=== PATIENT | female | born 1945 | race Caucasian/White ===

== ENCOUNTER 2022-09-01 08:48 | Inpatient (IN) | payer OTHER ==
[~2022-09-01] VITALS: Ht 165.1 cm; Wt 82.6 kg
[2022-09-01 08:48] VITALS: BP_SYST 162
--- NOTE | 2022-09-01 08:48 | NUR ---
Placed in room 1 . Placed on property assessment monitor, blood pressure machine and pulse oximeter. To gown for exam. Side rails up. Report given to RAPHAEL CASTILLO.
--- NOTE | 2022-09-01 08:50 | NUR ---
ER DR. CRUZ AT THE BEDSIDE EXAMINING PT
--- NOTE | 2022-09-01 08:51 | NUR ---
RECEIVED PT FROM RAPHAEL IZAGUIRRE. PT BOLA HORN FROM [facility], STAFF FOUND PT THIS MORNING WITH SLURRED SPEECH AND MINOR LEFT SIDED FACIAL DROOP. PT IS OBTUNDED, CAN NOT FOLLOW COMMANDS, GARBLED SPEECH, PT THRASHING AND KICKING IN BED, ATTEMPTING TO GET OOB. RESP E/U. LUNG SOUNDS DIMINISHED BILATERALLY. N/C AT 4LPM IN PLACE O2 SAT 97%. NO COUGH OR SOB NOTED. ABDOMEN SOFT, NONTENDER, NONDISTENDED. PT INCONTINENT OF URINE AND STOOL. PT CHANGED AND PLACED IN GOWN. DISTAL PULSE NORMAL, SKIN WARM, CDI. PT HAS BLE TRACE EDEMA. IV CATH TO RAC [address] S/L[address] PT PLACED ON MONITOR. SIDERAILS UP X2.
[2022-09-01] MEDS ORDERED: iohexoL 350 mgI/mL, 100 ML INFUS..BTL IV ONE (09:02)
[2022-09-01] MEDS ORDERED: LORazepam 2 MG/ML VIAL ONE ×2 (09:05→10:28)
--- NOTE | 2022-09-01 09:07 | NUR ---
TELE NEURO REQUESTED PER DR. CRUZ
--- NOTE | 2022-09-01 09:12 | NUR ---
LAB AT THE BEDSIDE FOR BLOOD DRAW
[2022-09-01] MEDS ORDERED: LORazepam 2 MG/ML VIAL IVP ONE ×2 (09:15→11:00)
--- NOTE | 2022-09-01 09:16 | NUR ---
ANNA LIM AT BEDSIDE WITH TELENEURO CONSULT
--- NOTE | 2022-09-01 09:23 | NUR ---
SW DAUGHTER SAIGE AREVALO FOR STATUS UPDATE . STATES PT HAS BEEN AT A REHAB AND IS NORMALLY AOX4, SPEAKS LEBANESE FLUENTLY AND HAS NOT KNOWN HX OF CVA.
[2022-09-01 09:27] LABS: BASOPHILS % (AUTO) 0.7 % (0.0-2.0); EOSINOPHILS # (AUTO) 0.1 K/uL (0.0-0.4); EOSINOPHILS % (AUTO) 1.4 % (0.0-4.0); HEMOGLOBIN 11.1 g/dL (12.0-16.0); LYMPHOCYTES # (AUTO) 1.4 K/uL (1.0-5.5); LYMPHOCYTES % (AUTO) 27.2 % (20.5-51.5); MEAN CORPUSCULAR HEMOGLOBIN 28 pg (27-31); MEAN CORPUSCULAR HGB CONC 33 % (32-36); MEAN CORPUSCULAR VOLUME 86 fL (79.0-98.0); MONOCYTES # (AUTO) 0.4 K/uL (0.0-1.0); NEUTROPHILS # (AUTO) 3.2 K/uL (1.8-7.7); NEUTROPHILS % (AUTO) 62.7 % (40.0-70.0); PLATELET COUNT (AUTO) 185 K/uL (130-430); RED BLOOD CELL COUNT(AUTO) 3.94 MIL/uL (4.2-6.2); RED CELL DISTRIBUTION WIDTH 16.3 % (9.0-15.0); WHITE BLOOD COUNT (AUTO) 5.1 K/uL (4.8-10.8)
[2022-09-01 09:38] LABS: ANION GAP 11 (5-15); CALCIUM 9.7 mg/dL (8.4-11.0); CHLORIDE 101 mmol/L (98-107); CREATININE 1.15 mg/dL (0.55-1.30); GLUCOSE 128 mg/dL (70-99); UREA NITROGEN, BLOOD 20 mg/dL (8-21)
[2022-09-01 09:46] LABS: ALANINE AMINOTRANSFERASE 17 U/L (12-78); ALBUMIN 2.5 g/dL (3.4-4.8); ASPARTATE AMINOTRANSFERASE 53 U/L (10-37); PROTHROMBIN TIME 10.3 SECS (9.5-12.5); TOTAL BILIRUBIN 0.7 mg/dL (0.0-1.0)
[2022-09-01] MEDS ORDERED: INSULIN GLARGINE 100 UNITS/ML, 10 ML VIAL ONE (09:59)
[2022-09-01 10:42] LABS: BILIRUBIN,URINE NEGATIVE (NEGATIVE); BLOOD, URINE NEGATIVE (NEGATIVE); CLARITY/URINE CLEAR (CLEAR); COLOR,URINE YELLOW (YELLOW); GLUCOSE,URINE NEGATIVE (NEGATIVE); KETONES,URINE NEGATIVE (NEGATIVE); LEUKOCYTE ESTERASE ,URINE NEGATIVE (NEGATIVE); NITRITE, URINE NEGATIVE (NEGATIVE); PROTEIN URINE 1+ (NEGATIVE); UROBILINOGEN,URINE 0.2 (0.2-1.0)
--- NOTE | 2022-09-01 10:53 | NUR ---
DR. CRUZ AT BEDSIDE TO DISCUSS POC WITH PT AND PT'S DAUGHTER.
[2022-09-01] MEDS ORDERED: LIP20 PO (11:20)
[2022-09-01] MEDS ORDERED: ACET-73 PO (11:20)
[2022-09-01] MEDS ORDERED: HYDR-4037 PO (11:20)
[2022-09-01] MEDS ORDERED: VALS160T2 PO (11:20)
[2022-09-01] MEDS ORDERED: HYDR-3917 PO (11:20)
[2022-09-01] MEDS ORDERED: DICLOFENAC GEL TP (11:20)
[2022-09-01] MEDS ORDERED: LOVI40 SQ (11:20)
[2022-09-01] MEDS ORDERED: LEVO125T8 PO (11:20)
[2022-09-01] MEDS ORDERED: MOM PO (11:20)
[2022-09-01] MEDS ORDERED: DOCU-156 PO (11:20)
[2022-09-01] MEDS ORDERED: FAMO20TA8 PO (11:20)
[2022-09-01] MEDS ORDERED: BISA10SU61 RC (11:20)
[2022-09-01] MEDS ORDERED: SENN8.6T19 PO (11:20)
[2022-09-01] MEDS ORDERED: ACET325T PO (11:20)
--- NOTE | 2022-09-01 11:20 | NUR ---
Medication reconciliation completed with information provided by [facility]. Any prior medication reconciliation on file was reviewed and corrected.
--- NOTE | 2022-09-01 11:29 | NUR ---
PT TAKEN FOR CTA HEAD/NECK AT THIS TIME, R/T AT BEDSIDE PT TRANSFERRED VIA ACLS. RAPHAEL PARMAR AT BEDSIDE.
--- NOTE | 2022-09-01 11:29 | NUR ---
NAM RN PUSHED ETOMIDATE (AMIDATE) 30 MG IVP PUSH ORDERED BY DR. STEVIE CRUZ. PRIMARY NURSE INFORMED OF ORDER. CHARGE NURSE MADE AWARE OF ORDER.
[2022-09-01] MEDS ORDERED: ETOMIDATE 20 MG/ 10 ML VIAL (AMIDATE) IVP ONE (11:30)
--- NOTE | 2022-09-01 11:30 | NUR ---
BILATERAL SOFT WRIST RESTRAINTS APPLIED AT THIS TIME. PT THRASING IN BED KICKING FEET AND ATTEMPT TO GO OVER SIDERAILS, UNABLE TO REDIRECT. DR. CRUZ AT BEDSIDE TO ASSESS PT.
--- NOTE | 2022-09-01 11:30 | NUR ---
PT TRANSPORTED VIA GURNEY TO CT ACCOMPANIED BY ER DR MCKEON AND CT STAFF AND THIS RN. ER DR. CRUZ ADMINISTERED ETOMIDATE 20MG IVP, PT TOLERATED WELL AND CT'S OBTAINED.
--- NOTE | 2022-09-01 11:42 | NUR ---
PT BACK FROM CT SCAN AND PLACED ON MONITOR. VSS.
[2022-09-01] MEDS ORDERED: ACETAMINOPHEN 325 MG TABLET PO PRN ×2 (13:00→14:00)
[2022-09-01] MEDS ORDERED: MUPIROCIN 2% TOPICAL OINTMENT 22 GM NS PRN (13:00)
[2022-09-01] MEDS ORDERED: MAGNESIUM SULFATE 50 ML IV PRN (13:00)
[2022-09-01] MEDS ORDERED: DOCUSATE SODIUM 100 MG CAPSULE PO PRN (13:00)
[2022-09-01] MEDS ORDERED: ONDANSETRON HCL 4 MG/2 ML VIAL IVP PRN (13:00)
--- NOTE | 2022-09-01 13:13 | NUR ---
PT THRASING ARMS AND KICKING FEET IN BED, ATIVAN 1MG IVP GIVEN. PT ON MONITOR. DAUGHTER AT BEDSIDE. Addendum: 09/01/22 at 1501 by [email or web address] CLARIFICATION: ATIVAN 2MG IM GIVEN TO RIGHT DELTOID. SITE WNL. COVERED WITH CDI DRESSING.
[2022-09-01] MEDS ORDERED: LORazepam 2 MG/ML VIAL IM ONE (13:15)
--- NOTE | 2022-09-01 13:51 | NUR ---
Admit bed requested Patient will be admitted to care of . Admitted to TELEMETRY unit. Diagnosis ACUTE METABOLIC ENCEPHALOPATHY Inpatient (Yes or No) YES Observation (Yes or No) NO Orientation concerns or request close to nursing station (Yes or No)YES-(ON RESTRAINTS) Covid Status NEGATIVE On vent or bipap NO Isolation requirements NONE Needs a sitter NO From Home (Yes or if No enter name of facility) [facility] Requires Dialysis (Yes or No) NO Med Rec Completed (Yes of No) YES
[2022-09-01] MEDS: NACL 0.9% 1,000 ML IV SCH (14:59)
--- NOTE | 2022-09-01 14:59 | NUR ---
NS AT 100ML/HOUR INITATED.
--- NOTE | 2022-09-01 15:07 | NUR ---
ADMISSION CONSULT HAS BEEN PAGED, ORDERED BY DR. WRIGHT
--- NOTE | 2022-09-01 15:40 | NUR ---
OPENING NOTE; RECEIVED REPORT FROM ANNA ER NURSE. PT CAME WITH BILATERAL SOFT RESTRAINTS, BREATHING 4L O2 VIA NC. NPO STATUS AND PENDING SWALLOW EVAL. FAMILY MEMBERS AT BEDSIDE. ANSWERED ALL QUESTIONS. IV S/L TO LEFT AC NOTED WITH NO IV INFILTRATION OR INFECTION NOTED. BED IS LOCKED AND AT LOW POSITION. BED ALARM ON. PT ROOM IS 121C, CLOSE TO THE NURSE'S STATION. PROVIDED ZOHRA CARE AND CHANGED WED PADS. WILL CONT TO MONITOR THE INDICATION OF BILATERAL RESTRAINTS AND ANY CHANGES.
--- NOTE | 2022-09-01 15:51 | NUR ---
CONSULTATION PAGED/CALLED Reason for Consultation: [] AMS Person Who was Notified: [] TEXTED CONSULT TO DR Rosalva SOSA Consulting Physician: [] DR Rosalva SOSA Travel Service Consultant Specialty: [] NEURO Ordering Physician: [] DR WRIGHT
--- NOTE | 2022-09-01 16:02 | NUR ---
Patient will be admitted to care of OCTOBER, RN. Admitted to TELEMETRY unit. Will go to room 121C. Belongings list completed. Complete and up to date summary report printed. SBAR report to be given at bedside with opportunity for questions.
[2022-09-01 16:13] VITALS: BP_SYST 160
[2022-09-01] MEDS: LORazepam 2 MG/ML VIAL IVP PRN (17:16)
--- NOTE | 2022-09-01 17:16 | NUR ---
NOTES; FAMILY MEMBER CAME TO THIS NURSE THAT PT IS RESTLESS AND AGITATED. PULLED PT UP AND CHECKED THE PAD. PROVIDED MEDICATION ORDERED. WILL CONT TO MONITOR THE EFFECTIVENESS OF THE MEDIATION
--- NOTE | 2022-09-01 17:20 | NUR ---
HAVE TO CALL DTR(SAIGE OR [facility]IL[facility]) FOR UPDATES. THEY ARE OKAY WITH ANYTIME.
--- NOTE | 2022-09-01 17:37 | NUR ---
ST EVALUATION COMPLETED. ST TX NOT INDICATED AT THIS TIME. PT AGITATED AND UNABLE TO FOLLOW SIMPLE COMMANDS. PT UNABLE TO DEMONSTRATE A SAFE EFFECTIVE SWALLOW. RECOMMEND NPO WITH ALTERNATIVE MEANS OF NUTRITION.
--- NOTE | 2022-09-01 18:01 | NUR ---
NOTES; PT SLEEPING WITH EYES CLOSED, BREATHING 4L O2 VIA NC. IVF RUNNING ORDERED. NO IV INFILTRATION OR INFECTION NOTED. NO S/S ACUTE DISTRESS OR PAIN. WILL CONT TO MONITOR ANY CHANGES
--- NOTE | 2022-09-01 18:54 | NUR ---
CLOSING NOTE; PROVIDED GOOD ZOHRA CARE, CHANGED WED PAD. IVF RUNNING ORDERED IV SITES REMAIN INTACT AND PATENT. NO S/S ACUTE DISTRESS NOTED. BED IS LOCKED AND AT LOWEST POSITION. BED ALARM ON. CALL LIGHT WITHIN REACH. SAFETY AND FALL PRECAUTION IN PLACE. WILL ENDORSE CARE TO ETL TESTER NURSE.
--- NOTE | 2022-09-01 19:24 | NUR ---
>>>PT NOTES<<< UNABLE TO EVALUATE PATIENT TODAY. PATIENT IS CURRENTLY SEDATED. WILL FOLLOW UP TOMORROW, Monday09/02/22.
[2022-09-01 20:00] VITALS: BP_SYST 150
[2022-09-01] MEDS: ATORVASTATIN 20 MG TABLET PO SCH (21:00)
[2022-09-02] VITALS (7 sets, daily range): BP systolic 129–159
[2022-09-02] MEDS: NACL 0.9% 1,000 ML IV SCH (00:30)
[2022-09-02] MEDS ORDERED: ALBUTEROL SULFATE 0.083% 2.5 MG/3 ML VIAL.NEB INH PRN (04:45)
[2022-09-02 06:36] LABS: ANION GAP 10 (5-15); CALCIUM 9.1 mg/dL (8.4-11.0); CHLORIDE 102 mmol/L (98-107); CREATININE 0.78 mg/dL (0.55-1.30); GLUCOSE 117 mg/dL (70-99); UREA NITROGEN, BLOOD 16 mg/dL (8-21)
[2022-09-02] MEDS: LEVOTHYROXINE SODIUM 0.125 MG TABLET PO SCH (07:00)
[2022-09-02 07:06] LABS: BASOPHILS % (AUTO) 0.4 % (0.0-2.0); EOSINOPHILS % (AUTO) 0.4 % (0.0-4.0); HEMATOCRIT 33.2 % (36-48); HEMOGLOBIN 10.9 g/dL (12.0-16.0); LYMPHOCYTES # (AUTO) 1.4 K/uL (1.0-5.5); LYMPHOCYTES % (AUTO) 22.5 % (20.5-51.5); MEAN CORPUSCULAR HEMOGLOBIN 29 pg (27-31); MEAN CORPUSCULAR HGB CONC 33 % (32-36); MEAN CORPUSCULAR VOLUME 87 fL (79.0-98.0); MONOCYTES # (AUTO) 0.9 K/uL (0.0-1.0); MONOCYTES % (AUTO) 13.6 % (1.7-9.3); NEUTROPHILS # (AUTO) 3.9 K/uL (1.8-7.7); NEUTROPHILS % (AUTO) 63.1 % (40.0-70.0); PLATELET COUNT (AUTO) 154 K/uL (130-430); RED BLOOD CELL COUNT(AUTO) 3.84 MIL/uL (4.2-6.2); RED CELL DISTRIBUTION WIDTH 16.4 % (9.0-15.0); WHITE BLOOD COUNT (AUTO) 6.2 K/uL (4.8-10.8)
--- NOTE | 2022-09-02 08:00 | NUR ---
Opening notes Patient is AOx1. Confused. NPO. Patient is on 4 L O2 via Oxymizer. Breathing is slightly labored, no nasal flaring noted. Patient also breathing thru mouth. Patient repositioned, HOB elevated. Vital signs obtained as documented. SPo2 at 96%. IV patent. Bed is locked, alarm, on, and at lowest position. Call light within reach. Addendum: 09/02/22 at 1400 by Willow Castellano LVN Opening notes Patient is AOx1. Confused. NPO. Patient is on 4 L O2 via Oxymizer. Breathing is slightly labored, no nasal flaring noted. Patient also breathing thru mouth. Patient repositioned, HOB elevated. Vital signs obtained as documented. SPo2 at 96%. IV patent. Patient has bilateral wrist restraints in place. No redness and/ or edema noted. Skin intact. Good blood circulation, cap refill less than 3 seconds. Bed is locked, alarm, on, and at lowest position. Call light within reach.
[2022-09-02] MEDS: ASPIRIN 81 MG TAB.CHEW PO SCH (09:00)
--- NOTE | 2022-09-02 09:00 | NUR ---
critical Lab informed nurse of critical d- dimer [id number]. nursed paged and spoke to Dr. Clements. aware of critical. Per , will put in new orders.
[2022-09-02] MEDS ORDERED: ENOXAPARIN SODIUM 80 MG/0.8 ML SYRINGE SUBCUT SCH (09:15)
[2022-09-02] MEDS ORDERED: DEXTROSE 50% JECT 50 ML DISP.SYRIN IVP PRN (09:30)
[2022-09-02] MEDS ORDERED: INSULIN LISPRO SLIDING SCALE 100 UNITS/ML, 3 ML VIAL (humaLOG) SUBCUT PRN (09:30)
--- NOTE | 2022-09-02 12:00 | NUR ---
Notes Patient has been cleaned and repositioned. Breathing is even and nonlabored, on 4 L O2 via Oxymizer. Patient remains NPO. restraints in place. No redness and or edema noted. Cap refill less than 3 seconds. All safety precautions in place and call light within reach.
[2022-09-02] MEDS ORDERED: iohexoL 350 mgI/mL, 100 ML INFUS..BTL IV ONE ×2 (13:05→17:20)
--- NOTE | 2022-09-02 13:30 | NUR ---
notes patient left unit for CT and MRI.
[2022-09-02] MEDS: LORazepam 2 MG/ML VIAL IVP PRN (13:41)
[2022-09-02] MEDS: PIPERACILLIN/TAZO 3.375/DEX-IS 50 ML IV SCH ×3 (15:10→23:45)
[2022-09-02] MEDS: D5NS 500 ML IV SCH ×2 (15:14→20:46)
--- NOTE | 2022-09-02 16:14 | NUR ---
notes Patient is resting, eyes closed, appears to be asleep. Breathing is even and nonlabored, on 4 L O2 via Oxymizer. No ss of distress noted. IVF running. IV patent. No facial grimace noted. Safety precautions in place and call light within reach.
--- NOTE | 2022-09-02 16:28 | NUR ---
Dietitian Recommendations * If/when medically appropriate, consider alternative nutrition support within 7 days - EN versus TPN/PPN to support GI integrity - Consider NGT placement LP, MS, RD Please refer to Nutrition Assessment for details. Addendum: 09/02/22 at [address] Amended: Links added.
--- NOTE | 2022-09-02 17:45 | NUR ---
second time paging Dr. Sawyer for orders. waiting for callback.
--- NOTE | 2022-09-02 18:57 | NUR ---
Closing Notes Patient is resting, eyes closed, appears to be sleeping. Breathing is even and nonlabored, on 4 L O2 via NC. No SOB noted. No facial grimace noted. IV patent. IVF running. Bilateral wrist restraints in place. No redness and or edema noted. skin intact. Patient is stable at this time. All needs met. Bed is locked, alarm on, and at lowest position. Call light within reach.
--- NOTE | 2022-09-02 19:50 | NUR ---
RECEIVED PT IN BED, AOX1, IN NO RESPIRATORY DISTRESS, PT CONFUSED, DENIED ANY SOB, CP OR PAIN ATT, BIATRIAL SOFT RESTRAIN NOTED, D5NS AT 75CC ONGOING TO LFA, SALINE LOCK TO RAC, NOTED BRUISES ON THE RA, ON CONNECTED TO OXYGEN 4L, BEDREST, CHECKED PT V/S AND O2SAT NOTED TO BE 89%, PT CONNECTED TO 4L OF OXYGEN VIA N/C, WILL CONTINUE WITH POC
[2022-09-02] MEDS: HEPARIN SODIUM,PORCINE 5,000 UNITS/ML VIAL SUBCUT SCH (20:47)
[2022-09-02] MEDS: ATORVASTATIN 20 MG TABLET PO SCH (20:47)
[2022-09-03] MEDS: D5NS 500 ML IV SCH ×4 (00:08→23:36)
[2022-09-03 00:34] VITALS: BP_SYST 136
--- NOTE | 2022-09-03 01:00 | NUR ---
PT IS INCONTINENT, UNABLE TO START 24HRS URINE COLLECTION, CALLED DR. WRIGHT, ORDERED TO INSERT INDWELLING F/C FOR COLLECTION OF URINE, ORDER NOTED, WILL BE CARRIED OUT
[2022-09-03] MEDS: PIPERACILLIN/TAZO 3.375/DEX-IS 50 ML IV SCH ×4 (05:11→23:35)
[2022-09-03] MEDS: LEVOTHYROXINE SODIUM 0.125 MG TABLET PO SCH (06:19)
--- NOTE | 2022-09-03 06:45 | NUR ---
PT IN BED, AOX1, IN NO RESPIRATORY DISTRESS, PT CONFUSED, ON BIATRIAL SOFT RESTRAIN, DENIED ANY SOB, CP OR PAIN ATT, D5NS AT 75CC ONGOING TO LFA, SALINE LOCK TO RAC, WITH BRUISES ON THE RAC, PT ON OXYGEN 4L VIA N/C, BEDREST, VOIDING W/O DIFFICULTY, F/C TO GRAVITY, DRAINING YELLOW CLEAR URINE, 24HRS URINE COLLECTION STARTED AT 6:30AM, VSS, NO NEW BRUISES OR INJURY SUSTAINED ON WRIST OR ANY OTHER PART OF BODY THIS SHIFT, SAFETY PREC MAINTAINED, LOW BED, WILL ENDORSE TO AM SHIFT
[2022-09-03 06:54] LABS: ANION GAP 10 (5-15); CHLORIDE 103 mmol/L (98-107); CREATININE 0.79 mg/dL (0.55-1.30); GLUCOSE 148 mg/dL (70-99); UREA NITROGEN, BLOOD 15 mg/dL (8-21)
[2022-09-03 07:56] LABS: BASOPHILS % (AUTO) 0.4 % (0.0-2.0); EOSINOPHILS % (AUTO) 0.4 % (0.0-4.0); HEMATOCRIT 32.3 % (36-48); HEMOGLOBIN 10.6 g/dL (12.0-16.0); LYMPHOCYTES % (AUTO) 18.1 % (20.5-51.5); MEAN CORPUSCULAR HEMOGLOBIN 29 pg (27-31); MEAN CORPUSCULAR HGB CONC 33 % (32-36); MEAN CORPUSCULAR VOLUME 87 fL (79.0-98.0); MONOCYTES # (AUTO) 0.6 K/uL (0.0-1.0); MONOCYTES % (AUTO) 11.1 % (1.7-9.3); PLATELET COUNT (AUTO) 158 K/uL (130-430); RED BLOOD CELL COUNT(AUTO) 3.73 MIL/uL (4.2-6.2); RED CELL DISTRIBUTION WIDTH 16.3 % (9.0-15.0); WHITE BLOOD COUNT (AUTO) 5.7 K/uL (4.8-10.8)
[2022-09-03 08:00] VITALS: BP_SYST 133
--- NOTE | 2022-09-03 08:00 | NUR ---
Opening Notes Patient is awake, alert, and confused. AOx3. No ss of distress noted. Breathing is even and nonlabored, on 4 L O2 via Oxymizer. No SOB noted. Patient denies pain. Removed Bilateral wrist restraints at this time. No edema or redness noted. Patient more cooperative. Vital signs obtained, as documented. Mai catheter in place, draining by gravity. 24 hr urine collection has started and is ongoing. Bed is locked, alarm on, and at lowest position. Call light within reach.
[2022-09-03] MEDS: ASPIRIN 81 MG TAB.CHEW PO SCH (10:03)
[2022-09-03] MEDS: POTASSIUM CHLORIDE 20 MEQ TAB.PRT.SR PO PRN (10:04)
[2022-09-03] MEDS: HEPARIN SODIUM,PORCINE 5,000 UNITS/ML VIAL SUBCUT SCH ×2 (10:06→22:08)
--- NOTE | 2022-09-03 10:48 | NUR ---
notes Patient is more awake and alert. bedside swallow test performed. Patient tolerated well. no coughing.no choking. no ss of aspiration. Paged and spoke to Dr. Celments. New orders received.
--- NOTE | 2022-09-03 12:00 | NUR ---
notes Patient is awake and is in high fowlers, lunch on bedside table. no ss of distress noted. breathing is even and nonlabored, on Oxymizer 4 L O2. No SOB noted. Patient continues to be cooperative. All safety precautions in place and call light within reach.
[2022-09-03 13:09] VITALS: BP_SYST 129
--- NOTE | 2022-09-03 16:00 | NUR ---
notes Patient is resting, eyes closed. No distress noted. No SOb noted. No facial grimace noted. All safety precautions in place and call light within reach.
[2022-09-03 16:31] VITALS: BP_SYST 151
--- NOTE | 2022-09-03 17:18 | NUR ---
Notes Patient working with physical therapy.
--- NOTE | 2022-09-03 18:35 | NUR ---
CLOSING NOTES PATIENT IS RESTING, AWAKE. NO SS OF DISTRESS NOTED. BREATHING IS EVEN AND NONLABORED, ON 4 L O2 VIA OXYMIZER. NO SOB NOTED. PATIENT DENIES PAIN. IV PATENT. IVF RUNNING. MONTEJO CATHETER DRAINING BY GRAVITY. 24 HOUR URINE COLLECTION STILL ONGOING. BED IS LOCKED, ALARM ON, AND AT LOWEST POSITION. CALL LIGHT WITHIN REACH. PATIENT IS STABLE. ALL NEEDS MET. SPOKE TO JO ANN RANDALL. REQUESTS FOR MD TO CALL HIM TO DISCUSS RESULTS OF CT/ MRI SCANS. CONTACT INFO IS . PAGED DR. SRIVASTAVA. WAITING FOR CALL BACK. Addendum: 09/03/22 at 1851 by Willow Castellano LVN CLOSING NOTES PATIENT IS RESTING, AWAKE. NO SS OF DISTRESS NOTED. BREATHING IS EVEN AND NONLABORED, ON 4 L O2 VIA OXYMIZER. NO SOB NOTED. PATIENT DENIES PAIN. IV PATENT. IVF RUNNING. MONTEJO CATHETER DRAINING BY GRAVITY. 24 HOUR URINE COLLECTION STILL ONGOING. BED IS LOCKED, ALARM ON, AND AT LOWEST POSITION. CALL LIGHT WITHIN REACH. PATIENT IS STABLE. ALL NEEDS MET. SPOKE TO JO ANN RANDALL. REQUESTS FOR MD TO CALL HIM TO DISCUSS RESULTS OF CT/ MRI SCANS. CONTACT INFO IS . PAGED DR. WRIGHT. WAITING FOR CALL BACK. -- SPOKE TO DR. WRIGHT. CONFIRMED WITH MD FUAD DUPREE. MD TO CALL JO ANN.
[2022-09-03 20:00] VITALS: BP_SYST 149
--- NOTE | 2022-09-03 20:00 | NUR ---
OPENING NOTES RECEIVED PATIENT IN BED. PATIENT AXO 3. NO S/S OF DISCOMFORT OR PAIN. BREATHING WAS UNLABORED. ALL NEEDS WERE MET AT THIS TIME. SAFETY CHECKS WERE DONE AND CALL LIGHT WITH IN REACH .
[2022-09-03] MEDS: ATORVASTATIN 20 MG TABLET PO SCH (22:02)
--- NOTE | 2022-09-04 00:07 | NUR ---
PAGED DR. BOLANOS REGARDING PATIENTS HEART RHYTHM TRIGEMNY PVC. STATED TO KEEP MONITORING PATIENT AND WILL RE-EVALUATE IN THE MORNING.
[2022-09-04 01:27] VITALS: BP_SYST 149
[2022-09-04] MEDS: D5NS 500 ML IV SCH (05:04)
[2022-09-04] MEDS: PIPERACILLIN/TAZO 3.375/DEX-IS 50 ML IV SCH (05:05)
--- NOTE | 2022-09-04 06:30 | NUR ---
24 hour urine collection stopped at 0630. Container delivered to lab.
[2022-09-04] MEDS: LEVOTHYROXINE SODIUM 0.125 MG TABLET PO SCH (07:04)
--- NOTE | 2022-09-04 07:26 | NUR ---
CLOSING NOTES PATIENT IS LYING IN BED. 24 HOURS URINE HAS BEEN COLLECTED AND SENT TO LABS. BLOOD SUGAR CHECK IS DONE. REPOSITIONED PATIENT. NO S/S OF PAIN OR DISTRESS. BREATHING IS UNLABORED. AXO3. HANDED PATIENT TO MUFFLE OPERATOR. ALL NEEDS WERE MET AT THIS TIME. SAFETY CHECKS ARE DONE AND CALL LIGHT WITH IN REACH
[2022-09-04 07:38] LABS: BASOPHILS % (AUTO) 0.5 % (0.0-2.0); EOSINOPHILS % (AUTO) 0.5 % (0.0-4.0); HEMATOCRIT 29.3 % (36-48); HEMOGLOBIN 9.8 g/dL (12.0-16.0); LYMPHOCYTES # (AUTO) 1.5 K/uL (1.0-5.5); LYMPHOCYTES % (AUTO) 26.5 % (20.5-51.5); MEAN CORPUSCULAR HEMOGLOBIN 29 pg (27-31); MEAN CORPUSCULAR HGB CONC 33 % (32-36); MEAN CORPUSCULAR VOLUME 86 fL (79.0-98.0); MONOCYTES # (AUTO) 0.5 K/uL (0.0-1.0); MONOCYTES % (AUTO) 9.5 % (1.7-9.3); NEUTROPHILS # (AUTO) 3.5 K/uL (1.8-7.7); PLATELET COUNT (AUTO) 176 K/uL (130-430); RED BLOOD CELL COUNT(AUTO) 3.42 MIL/uL (4.2-6.2); RED CELL DISTRIBUTION WIDTH 16.4 % (9.0-15.0); WHITE BLOOD COUNT (AUTO) 5.6 K/uL (4.8-10.8)
--- NOTE | 2022-09-04 07:45 | NUR ---
Opening Notes Patient is Aox3 forgetful. No ss of distress noted. Patient's breathing is even and nonlabored, on room air. Denies SOB. Denies pain. Vital signs obtained, as documented. Iv patent. IVF running. Mai catheter draining by gravity. Bed is locked, alarm on, and at lowest position. Call light within reach.
[2022-09-04 08:00] VITALS: BP_SYST 143
[2022-09-04 08:15] LABS: ALANINE AMINOTRANSFERASE 14 U/L (12-78); ANION GAP 10 (5-15); ASPARTATE AMINOTRANSFERASE 32 U/L (10-37); CALCIUM 8.7 mg/dL (8.4-11.0); CHLORIDE 104 mmol/L (98-107); CREATININE 0.87 mg/dL (0.55-1.30); GLUCOSE 121 mg/dL (70-99); TOTAL BILIRUBIN 1.2 mg/dL (0.0-1.0); UREA NITROGEN, BLOOD 16 mg/dL (8-21)
[2022-09-04] MEDS: ASPIRIN 81 MG TAB.CHEW PO SCH (08:37)
[2022-09-04] MEDS: HEPARIN SODIUM,PORCINE 5,000 UNITS/ML VIAL SUBCUT SCH ×2 (08:42→21:14)
--- NOTE | 2022-09-04 08:46 | NUR ---
notes am medications administered. patient denies pain. no sob noted. breathing nonlabored and even on room air. all safety precautions in place and call light within reach.
--- NOTE | 2022-09-04 10:30 | NUR ---
D/C MONTEJO DISCONTINUED MONTEJO CATHETER, PER MD. PATIENT TOLERATED WELL.
[2022-09-04 11:47] VITALS: BP_SYST 142
--- NOTE | 2022-09-04 12:25 | NUR ---
notes Patient is r Addendum: 09/04/22 at 1231 by Willow Castellano LVN notes Patient is eating lunch, sitting in chair by bedside. Blood glucose was 151 mg/ dl. Patient refused insulin coverage. daughter at bedside. All safety precautions in place and call light within reach.
[2022-09-04 16:53] VITALS: BP_SYST 137
--- NOTE | 2022-09-04 17:30 | NUR ---
NOTES PATIENT GOT UP AND SAT IN CHAIR READY FOR DINNER. NO SS OF DISTRESS NOTED. DENIES SOB. DENIES PAIN. BEDSIDE TABLE IN FRONT OF HER. CALL LIGHT WITHIN REACH.
--- NOTE | 2022-09-04 18:30 | NUR ---
CLOSING NOTES PATIENT IS BACK IN BED, RESTING COMFORTABLY. BREATHING IS EVEN AND NONLABORED, ON ROOM AIR. NO SS OF RESPIRATORY DISTRESS NOTED. DENIES PAIN. IV PATENT. IVF RUNNING. PATIENT IS STABLE. ALL NEEDS MET. BED IS LOCKED, ALARM ON, AND AT LOWEST POSITION. CALL LIGHT WITHIN REACH.
[2022-09-04 19:00] VITALS: BP_SYST 146
--- NOTE | 2022-09-04 19:15 | NUR ---
change of shift.pt.presents quiescent affect;calm,resting.pt.present iv access intact;patent location lt.forearm.iv fluids infusing.pt.utilizing the bsc w/in access of the pt.general status stable.respiratory status stable;unlabored@room air.02 sat%=98%.ramesh light/telephone w/in access of the pt.
[2022-09-04 20:00] VITALS: BP_SYST 146
--- NOTE | 2022-09-04 20:00 | NUR ---
pt.assessed.v/s assessed values note wnl.o2-sat%=98%.no c/o pain.nausea.iv access intact;patent.pt.assessed for cleanliness. pt.repositioned.pt.apprised snacks/beverages are available w/in the shift.no requests posited@this hour.call light/telephone placed w/in access of the pt.
--- NOTE | 2022-09-04 20:30 | NUR ---
blood glucose assessed value:128md/dl.
--- NOTE | 2022-09-04 21:00 | NUR ---
2100p medications administered;lipitor.pt.capable to ingest the po medication w/out difficulty.no c/o pain,nausea. call light/telephone w/in access of the pt.
[2022-09-04] MEDS: ATORVASTATIN 20 MG TABLET PO SCH (21:05)
--- NOTE | 2022-09-04 22:00 | NUR ---
pt.assessed.pt.quiescent.iv access intact.per flacc pain mgx pt.absent facial grimaces/body posturing. pt.assessed for cleanliness.pt.repositioned.o2-sat%=98%.call light/telephone placed w/in access of the pt.
[2022-09-05] VITALS: BP_SYST 136
--- NOTE | 2022-09-05 | NUR ---
pt.assessed.v/s assessed values wnl.o2-sat%=98%.no c/o pain,nausea.no requests posited@this hour.pt.assisted to the bsc.returned to bed/repositioned.call light/telephone placed w/in access of the pt.
--- NOTE | 2022-09-05 02:00 | NUR ---
pt.assessed.pt.quiescent.per flacc pain mgx pt.absent facial grimaces/body posturing.pt.assessed for cleanliness pt.repositioned.call light/telephone placed w/in access of the pt.
--- NOTE | 2022-09-05 04:00 | NUR ---
pt.assessed.pt.quiescent.per flacc pain mgx pt.absent facial grimaces/body posturing.pt.assessed for cleanliness. pt.repositioned.call light/telephone placed w/in access of the pt.
[2022-09-05 04:56] LABS: BASOPHILS % (AUTO) 0.5 % (0.0-2.0); EOSINOPHILS % (AUTO) 0.8 % (0.0-4.0); HEMOGLOBIN 9.7 g/dL (12.0-16.0); LYMPHOCYTES # (AUTO) 1.5 K/uL (1.0-5.5); LYMPHOCYTES % (AUTO) 30.8 % (20.5-51.5); MEAN CORPUSCULAR HEMOGLOBIN 29 pg (27-31); MEAN CORPUSCULAR HGB CONC 33 % (32-36); MEAN CORPUSCULAR VOLUME 86 fL (79.0-98.0); MONOCYTES # (AUTO) 0.5 K/uL (0.0-1.0); MONOCYTES % (AUTO) 9.3 % (1.7-9.3); NEUTROPHILS # (AUTO) 2.9 K/uL (1.8-7.7); NEUTROPHILS % (AUTO) 58.6 % (40.0-70.0); PLATELET COUNT (AUTO) 186 K/uL (130-430); RED BLOOD CELL COUNT(AUTO) 3.38 MIL/uL (4.2-6.2); RED CELL DISTRIBUTION WIDTH 16.6 % (9.0-15.0)
[2022-09-05 05:26] LABS: ANION GAP 11 (5-15); CALCIUM 8.8 mg/dL (8.4-11.0); CHLORIDE 105 mmol/L (98-107); CREATININE 0.77 mg/dL (0.55-1.30); GLUCOSE 93 mg/dL (70-99); UREA NITROGEN, BLOOD 17 mg/dL (8-21)
[2022-09-05] MEDS: LEVOTHYROXINE SODIUM 0.125 MG TABLET PO SCH (05:59)
--- NOTE | 2022-09-05 06:15 | NUR ---
pt.assessed.blood glucose assessed value:103mg/dl.no c/o pain,nausea.pt.assissted to the bsc returned to bed repositioned.no additional requests posited@this hour.iv access re-established:#24g lt.hand.call light/telephone placed w/in access of the pt.
[2022-09-05] MEDS: ASPIRIN 81 MG TAB.CHEW PO SCH (09:11)
[2022-09-05] MEDS: HEPARIN SODIUM,PORCINE 5,000 UNITS/ML VIAL SUBCUT SCH ×2 (09:12→21:21)
--- NOTE | 2022-09-05 10:00 | NUR ---
update provided to son and daughter at bedside, advised to wait for md to do rounds for further concerns or questions
[2022-09-05] MEDS ORDERED: LACTULOSE 20 GM/30 ML UDC PO ONE (10:45)
--- NOTE | 2022-09-05 11:08 | NUR ---
BLOOD GLUCOSE 81 MG/DL. NO COVERAGE NOTED.
[2022-09-05] MEDS: POTASSIUM CHLORIDE 20 MEQ TAB.PRT.SR PO PRN (11:50)
[2022-09-05 11:55] VITALS: BP_SYST 159
--- NOTE | 2022-09-05 12:38 | NUR ---
Nutrition F/U RD reviewed pts current EMR including diet hx, physician notes, nursing notes, pertinent labs/meds/procedures, care trends and care activity. Subjective Information RD rounded to pt room and s/w pt. She attests to very poor appetite and cant stand the mushy food. Pt denies any chewing/swallowing issues, RD thinks she does not need mechanical soft diet. RD suggested Glucerna BID and pt agreeable. Pt gave some snack ideas; RD entered in computrition. Pt denies any GI symptoms. Pt reports losing 40# in 3 months d/t poor appetite; RD suggested she try appetite stimulant if MD agreeable. Pt currently not meeting nutritional needs Current Diet Order/Nutrition Support Consistent CHO, mech soft x 2 days % PO intake Poor avg of 33% x 6 meal records Last BM 09/04 x 1 Estimated Energy Expenditure (kcals/day) 0119-8031 (25-30 kcal/kg Adj IBW d/t GERIAT maintenance) Estimated Protein Required (g/day) 63-76 (1-1.2 gm/kg Adj IBW d/t GERIAT maintenance) Estimated Fluid Required (l/day) 1.6-1.9 (1 ml/kcal/day for GERIAT maintenance) Problem/Etiology/Signs/Symptoms Inadequate nutrient intakes R/T metabolic demands AEB NPO status and inability to meet estimated nutritional requirements for GERIAT age *ongoing. Expected Outcomes/Goals - Monitor provision of nutrition support w/ goal of pt meeting >50% of estimated nutritional needs, labs trending WNL, normal GI function, and skin integrity/wt maintenance Dietitian Recommendations * Continue CCHO diet. Remove mechanical soft restriction * Ordered Glucerna BID * Consider appetite stimulant Follow up *High risk: f/u in 2-3 days RENAE, MPH, RD
--- NOTE | 2022-09-05 12:40 | NUR ---
Dietitian Recommendations * [facility]. Remove mechanical soft restriction * Ordered Glucerna BID * Consider appetite stimulant GS, MPH, RD Please refer to Nutrition F/U for further details. Thanks!
[2022-09-05 15:06] LABS: A/G RATIO 0.7 (0.7-1.7); ALBUMIN 2.6 g/dL (2.9-4.4); ALPHA-1-GLOBULIN 0.4 g/dL (0.0-0.4); BETA GLOBULIN 0.8 g/dL (0.7-1.3); GAMMA GLOBULIN 1.7 g/dL (0.4-1.8); GLOBULIN, TOTAL 3.8 g/dL (2.2-3.9); M-SPIKE Not Observed g/dL (Not Observed)
--- NOTE | 2022-09-05 15:25 | NUR ---
PHYSICAL THERAPY CO-SIGN The Physical Therapy Progress Notes documented by Geophysical Observer have been reviewed. Reviewed/Co-Signed by: Rai Sal Documentation Done by:MICA CORTEZ Addendum: 09/05/22 at 1525 by Rai Sal PT Amended: Links added.
--- NOTE | 2022-09-05 16:00 | NUR ---
telephone call from radiology, patient to have ct bone marrow biopsy done 09/06, patient to be npo after midnight
[2022-09-05 17:15] VITALS: BP_SYST 151
[2022-09-05 20:30] VITALS: BP_SYST 143
[2022-09-05] MEDS: ATORVASTATIN 20 MG TABLET PO SCH (21:19)
--- NOTE | 2022-09-06 | NUR ---
NPO patient alert and aware of no food or drink d/t procedure .
[2022-09-06 00:51] VITALS: BP_SYST 152
--- NOTE | 2022-09-06 03:02 | NUR ---
Hourly Rounding patient fall Risk bed alarm is on frequent monitor call lemus given to patient .
[2022-09-06 05:56] LABS: BASOPHILS % (AUTO) 0.4 % (0.0-2.0); EOSINOPHILS % (AUTO) 0.9 % (0.0-4.0); HEMATOCRIT 29.4 % (36-48); HEMOGLOBIN 9.9 g/dL (12.0-16.0); LYMPHOCYTES # (AUTO) 1.5 K/uL (1.0-5.5); LYMPHOCYTES % (AUTO) 30.7 % (20.5-51.5); MEAN CORPUSCULAR HEMOGLOBIN 29 pg (27-31); MEAN CORPUSCULAR HGB CONC 34 % (32-36); MEAN CORPUSCULAR VOLUME 86 fL (79.0-98.0); MONOCYTES # (AUTO) 0.5 K/uL (0.0-1.0); MONOCYTES % (AUTO) 10.2 % (1.7-9.3); NEUTROPHILS # (AUTO) 2.8 K/uL (1.8-7.7); NEUTROPHILS % (AUTO) 57.8 % (40.0-70.0); PLATELET COUNT (AUTO) 184 K/uL (130-430); RED BLOOD CELL COUNT(AUTO) 3.44 MIL/uL (4.2-6.2); RED CELL DISTRIBUTION WIDTH 16.3 % (9.0-15.0); WHITE BLOOD COUNT (AUTO) 4.8 K/uL (4.8-10.8)
[2022-09-06 06:11] LABS: ANION GAP 10 (5-15); CALCIUM 8.6 mg/dL (8.4-11.0); CHLORIDE 104 mmol/L (98-107); CREATININE 0.72 mg/dL (0.55-1.30); GLUCOSE 85 mg/dL (70-99); UREA NITROGEN, BLOOD 14 mg/dL (8-21)
[2022-09-06] MEDS: LEVOTHYROXINE SODIUM 0.125 MG TABLET PO SCH (06:42)
[2022-09-06] MEDS: ASPIRIN 81 MG TAB.CHEW PO SCH (09:00)
[2022-09-06] MEDS: HEPARIN SODIUM,PORCINE 5,000 UNITS/ML VIAL SUBCUT SCH ×2 (09:00→21:57)
[2022-09-06 11:34] VITALS: BP_SYST 159
[2022-09-06] MEDS: LACTULOSE 20 GM/30 ML UDC PO SCH (12:11)
[2022-09-06 13:06] LABS: CANCER AG, 125 16.9 U/mL (0.0-38.1); CEA 1.7 ng/mL (0.0-4.7)
--- NOTE | 2022-09-06 15:36 | NUR ---
PHYSICAL THERAPY CO-SIGN The Physical Therapy Progress Notes documented by Senior Risk Analyst have been reviewed. Reviewed/Co-Signed by: Rai Sal Documentation Done by:MICA CORTEZ Addendum: 09/06/22 at 1537 by Rai Sal PT Amended: Links added.
[2022-09-06 16:44] VITALS: BP_SYST 150
--- NOTE | 2022-09-06 19:15 | NUR ---
RECEIVED REPORT FROM RAPHAEL SOTO, ASSUMED CARE, AND STARTED ASSESSMENT.
[2022-09-06 20:00] VITALS: BP_SYST 153
--- NOTE | 2022-09-06 20:02 | NUR ---
Per radiology bone marrow biopsy can not be done today and will be done tomorrow by Dr. Delvalle. NPo after midnight. endorsed to oncoming nurse for continuity of care.
[2022-09-06] MEDS: ATORVASTATIN 20 MG TABLET PO SCH (22:08)
[2022-09-07 01:20] VITALS: BP_SYST 111
--- NOTE | 2022-09-07 02:58 | NUR ---
ASSISTED PATIENT TO THE BED SIDE COMMODE TO URINATE. ASSISTED PT BACK TO BED. WILL CONTINUE TO MONITOR AND ASSESS FOR SAFETY AND COMFORT.
[2022-09-07] MEDS: LEVOTHYROXINE SODIUM 0.125 MG TABLET PO SCH (06:25)
--- NOTE | 2022-09-07 07:30 | NUR ---
REPORT GIVEN TO RAPHAEL ORTEGA, AND CARE WAS TURNED OVER TO HER.
[2022-09-07] MEDS: LACTULOSE 20 GM/30 ML UDC PO SCH (09:00)
[2022-09-07] MEDS: ASPIRIN 81 MG TAB.CHEW PO SCH (09:00)
[2022-09-07] MEDS: HEPARIN SODIUM,PORCINE 5,000 UNITS/ML VIAL SUBCUT SCH ×2 (09:00→21:12)
[2022-09-07 09:09] VITALS: BP_SYST 145
[2022-09-07 11:26] VITALS: BP_SYST 144
[2022-09-07] MEDS ORDERED: fentaNYL CITRATE/PF 100 MCG/2 ML AMP ONE (11:41)
[2022-09-07] MEDS ORDERED: MIDAZOLAM HCL 5 MG/5 ML VIAL ONE (11:41)
[2022-09-07] MEDS ORDERED: LIDOCAINE 1%, 20 ML MDV 20 ML ONE (12:36)
--- NOTE | 2022-09-07 14:30 | NUR ---
faxed pt information to [employer] [facility] phone#[phone].
--- NOTE | 2022-09-07 14:59 | NUR ---
Patient was not accepted at [facility] due to insurance. Left Message for daughter regarding no contract with [facility]. [facility] will contact family to discuss family's issues at [facility] and attempt to resolve the issues the family has.
--- NOTE | 2022-09-07 15:54 | NUR ---
TWO ATTEMPTS WERE MADE TO SEE PATIENT FOR PT TREATMENT, HOWEVER, PATIENT WAS UNAVAILABLE. FIRST ATTEMPT PATIENT WAS LEAVING FOR A PROCEDURE. SECOND ATTEMPT, PATIENT WAS ASLEEP AND UNAROUSABLE. WILL TRY AGAIN TOMORROW.
--- NOTE | 2022-09-07 17:00 | NUR ---
RECEIVED SBAR REPORT FROM NURSE SHANNON,CARE ASSUMED,PT NEEDS TELEMETRY CARE PER ENDORSEMENT,REPEAT EKG DONE PER DR ORDER.YET,RESULT SHOWS SINUS RHYTHM PVCS,NO SIGNIFICANT CHANGES NOTED COMPARED TO PRIOR STUDY.PT BLOOD SUGAR 76MG/DL GIVE GRAM CRACKERS AND ORANGE JUICE,NEEDS ATTENDED,SAFETY MAINTAINED.CONTINUE TO MONITOR PT.
[2022-09-07 17:32] VITALS: BP_SYST 140
[2022-09-07 20:00] VITALS: BP_SYST 139
[2022-09-07] MEDS: MORPHINE 2 MG/ML INJ. SYRINGE IVP PRN (20:57)
[2022-09-07] MEDS: ATORVASTATIN 20 MG TABLET PO SCH (21:05)
--- NOTE | 2022-09-07 23:56 | NUR ---
awake, sitting on chair at bedside Patient is awake and tired of laying in bed. She was assisted to sit on chair at bedside. Bedside table is in front of her, and call light is w/in reach. She is thirsty and drank water and juice.
[2022-09-08 01:17] VITALS: BP_SYST 97
--- NOTE | 2022-09-08 01:40 | NUR ---
returned to bed Patient was assisted back to bed.
--- NOTE | 2022-09-08 03:14 | NUR ---
Resting eyes closed Patient resting in bed w/eyes closed. Symmetrical rise and fall of chest, safety precautions in place.
[2022-09-08] MEDS: MORPHINE 2 MG/ML INJ. SYRINGE IVP PRN ×4 (04:39→20:42)
[2022-09-08] MEDS: LEVOTHYROXINE SODIUM 0.125 MG TABLET PO SCH (06:49)
[2022-09-08 08:00] VITALS: BP_SYST 127
[2022-09-08] MEDS: LACTULOSE 20 GM/30 ML UDC PO SCH (08:06)
[2022-09-08] MEDS: ASPIRIN 81 MG TAB.CHEW PO SCH (08:07)
[2022-09-08] MEDS: HEPARIN SODIUM,PORCINE 5,000 UNITS/ML VIAL SUBCUT SCH ×2 (08:11→20:53)
[2022-09-08 13:16] VITALS: BP_SYST 112
--- NOTE | 2022-09-08 14:33 | NUR ---
MULTIPLE ATTEMPTS WERE MADE TO SEE PATIENT TODAY HOWEVER, PATIENT REFUSED TWICE. PATIENT STATES SHE DOESN'T WANT TO PT TODAY D/T FEELING SORE AFTER BX YESTERDAY. WILL TRY AGAIN TOMORROW.
[2022-09-08] MEDS: POTASSIUM CHLORIDE 20 MEQ TAB.PRT.SR PO PRN (16:44)
[2022-09-08 17:31] VITALS: BP_SYST 103
--- NOTE | 2022-09-08 18:53 | NUR ---
Received pt a/ox3. No c/o pain. Pt incontinent/continent of urine. C/o 8-10/10 pain. Relieved to 0/10 pain. Son Rodney requested for phone call from the doctor. Notified Dr. Cruz. Rodney said Dr. Cruz call him. K=3.4. Replaced with 40meq KCl.
[2022-09-08 20:38] VITALS: BP_SYST 138
[2022-09-08] MEDS: ATORVASTATIN 20 MG TABLET PO SCH (20:45)
[2022-09-09 01:35] VITALS: BP_SYST 120
--- NOTE | 2022-09-09 05:56 | NUR ---
PT RESTING IN BED, MEDICATE ONE TIME FOR BACK PAIN WITH MORPHINE IV PER PT'S REQUEST NO ACUTE DISTRESS OVERNIGHT
[2022-09-09] MEDS: LEVOTHYROXINE SODIUM 0.125 MG TABLET PO SCH (06:28)
[2022-09-09 08:19] VITALS: BP_SYST 124
[2022-09-09] MEDS: LACTULOSE 20 GM/30 ML UDC PO SCH (08:48)
[2022-09-09] MEDS: ASPIRIN 81 MG TAB.CHEW PO SCH (08:48)
[2022-09-09] MEDS: MORPHINE 2 MG/ML INJ. SYRINGE IVP PRN ×2 (08:49→14:19)
[2022-09-09] MEDS: HEPARIN SODIUM,PORCINE 5,000 UNITS/ML VIAL SUBCUT SCH (08:52)
--- NOTE | 2022-09-09 12:22 | NUR ---
Patient accepted at [facility] room 203B. Number for report [phone]. [facility] to transport at 2:30 PM . Son, Rodney, and daughter, Madeline, agreed to transport-they will see the patient at [facility] later today.
--- NOTE | 2022-09-09 14:18 | NUR ---
MULTIPLE ATTEMPTS MADE TO SEE PATIENT FOR PARTICIPATION. PATIENT REFUSED TWICE STATING SHE IS NOT IN THE MOOD AND THAT SHE WILL BE LEAVING TODAY.
--- NOTE | 2022-09-09 14:40 | NUR ---
patient discharge to [facility] room 203B. Report given to RAPHAEL Duran. Patient verbalizes pain and given prn morphine prior to discharge. Intact 22 gauge IV removal from left forearm. Patient identification bracelet removal. Given a copy of medication reconciliation form and discharge paperwork packet. Accompanied by family/friend at discharge and ambulance team members.
[2022-09-12 13:16] LABS: IMMUNOGLOBULIN G, SERUM 1528; IMMUNOGLOBULIN M, SERUM 243; KAPPA & LAMBDA LT CHAIN RATIO 1.55 ratio (0.26-1.65)
== END 2022-09-09 14:40 | DRG 70 ==
LOC: SED 08:48 → STU 12:47 → SMU 09-04 23:09
PROVIDERS: ADMIT Family Medicine; ATTEND Family Medicine
PROC: 079T3ZX Drainage of Bone Marrow, Percutaneous Approach, Diagnostic (ICD-10-PCS; principal; 2022-09-07)
DX: G93.41 Metabolic encephalopathy (principal); E43 Unspecified severe protein-calorie malnutrition; J96.01 Acute respiratory failure with hypoxia; K76.82 Hepatic encephalopathy; I16.0 Hypertensive urgency; D64.9 Anemia, unspecified; Z68.30 Body mass index [BMI] 30.0-30.9, adult; E11.9 Type 2 diabetes mellitus without complications; E78.5 Hyperlipidemia, unspecified; I10 Essential (primary) hypertension; E03.9 Hypothyroidism, unspecified; E87.6 Hypokalemia
CPT/HCPCS: 36415; 36600; 70450-TC; 70496; 70498; 70551; 71045; 71275; 76376; 76856-TC; 80048; 80053; 81003; 82140; 82378; 82784; 82803-TC; 83735; 83880; 84155; 84156; 84165; 84443; 84484; 85025; 85379; 85610-TC; 85730-TC; 86304; 87081; 88305; 88341; 88342; 92610-GN; 93005; 93306; 94760; 96374; 96375; 96376; 97110-GP; 97116-GP; 97163-GP; 97530-GP; 99285; G0378; J1644; J1815; J2001; J2060; J2250; J2270; J2543; J3010; J3490; Q9967

== ENCOUNTER 2022-09-27 14:53 | Emergency (ER) | payer OTHER ==
[~2022-09-27] VITALS: Ht 167.6 cm; Wt 72.6 kg
[~2022-09-27 14:53] MED LIST: ACET-73 PO; ACET325T PO; BISA10SU61 RC; DICLOFENAC GEL TP; DOCU-156 PO; FAMO20TA8 PO; HYDR-3917 PO; HYDR-4037 PO; LEVO125T8 PO; LIP20 PO; LOVI40 SQ; MOM PO; SENN8.6T19 PO; VALS160T2 PO
[2022-09-27 14:58] VITALS: BP_SYST 110
[2022-09-27 15:27] LABS: BASOPHILS % (AUTO) 0.3 % (0.0-2.0); EOSINOPHILS # (AUTO) 0.1 K/uL (0.0-0.4); EOSINOPHILS % (AUTO) 0.7 % (0.0-4.0); HEMATOCRIT 30.1 % (36-48); LYMPHOCYTES # (AUTO) 1.3 K/uL (1.0-5.5); LYMPHOCYTES % (AUTO) 18.4 % (20.5-51.5); MEAN CORPUSCULAR HEMOGLOBIN 28 pg (27-31); MEAN CORPUSCULAR HGB CONC 33 % (32-36); MEAN CORPUSCULAR VOLUME 85 fL (79.0-98.0); MONOCYTES # (AUTO) 0.5 K/uL (0.0-1.0); MONOCYTES % (AUTO) 7.5 % (1.7-9.3); NEUTROPHILS # (AUTO) 5.3 K/uL (1.8-7.7); NEUTROPHILS % (AUTO) 73.1 % (40.0-70.0); PLATELET COUNT (AUTO) 248 K/uL (130-430); RED BLOOD CELL COUNT(AUTO) 3.56 MIL/uL (4.2-6.2); RED CELL DISTRIBUTION WIDTH 18.2 % (9.0-15.0); WHITE BLOOD COUNT (AUTO) 7.3 K/uL (4.8-10.8)
[2022-09-27 15:38] LABS: ANION GAP 10 (5-15); CALCIUM 8.8 mg/dL (8.4-11.0); CHLORIDE 103 mmol/L (98-107); CREATININE 1.02 mg/dL (0.55-1.30); GLUCOSE 106 mg/dL (70-99); UREA NITROGEN, BLOOD 31 mg/dL (8-21)
[2022-09-27 15:43] LABS: INR 1.1 (0.8-1.2); PROTHROMBIN TIME 11.4 SECS (9.5-12.5)
[2022-09-27 15:45] LABS: ALANINE AMINOTRANSFERASE 8 U/L (12-78); ALBUMIN 2.1 g/dL (3.4-4.8); ASPARTATE AMINOTRANSFERASE 30 U/L (10-37); TOTAL BILIRUBIN 0.7 mg/dL (0.0-1.0)
[2022-09-27 15:49] LABS: ACETAMINOPHEN < 1 ug/mL (1-30); ALCOHOL, BLOOD < 3 mg/dL (<10)
[2022-09-27 16:13] LABS: ACETONE, SERUM NEGATIVE (NEGATIVE)
[2022-09-27 17:31] LABS: BILIRUBIN,URINE 1+ (NEGATIVE); BLOOD, URINE 3+ (NEGATIVE); CLARITY/URINE CLOUDY (CLEAR); COLOR,URINE YELLOW (YELLOW); GLUCOSE,URINE NEGATIVE (NEGATIVE); KETONES,URINE 1+ (NEGATIVE); LEUKOCYTE ESTERASE ,URINE 2+ (NEGATIVE); NITRITE, URINE POSITIVE (NEGATIVE); PH,URINE 5.5 (5.0-8.0); PROTEIN URINE 1+ (NEGATIVE)
[2022-09-27 17:42] LABS: BACTERIA,URINE MANY /HPF (None Seen); WBC,URINE 50-80 /HPF (0-3)
[2022-09-27 17:51] LABS: BARBITURATE, URINE NEGATIVE (NEG <=200); BENZODIAZEPINE, URINE NEGATIVE (NEG <=150); CANNABINOID, URINE NEGATIVE (NEG <=50); COCAINE, URINE NEGATIVE (NEG <=150); METHAMPHETAMINES SCREEN,URINE NEGATIVE (NEG <=500); OPIATE, URINE POSITIVE (NEG <=100); PHENCYCLIDINE SCREEN,URINE NEGATIVE (NEG <=25); UR TRICYCLIC ANTIDEPRESSANTS NEGATIVE (NEG <=300); URINE AMPHETAMINE NEGATIVE (NEG <=500); URINE METHADONE NEGATIVE (NEG <=200); URINE PROPOXYPHENE SCREEN NEGATIVE (NEG <=300)
[2022-09-27 17:52] LABS: URINE OXYCODONE SCREEN NEGATIVE (NEG <=100)
[2022-09-27] MEDS ORDERED: cefTRIAXone 1 GM in LIDOCAINE 1%, 20 ML MDV 2.1 ML IM ONE (18:00)
[2022-09-27] MEDS ORDERED: KETOROLAC TROMETHAMINE 30 MG VIAL IM ONE (21:00)
[2022-09-27 21:04] VITALS: BP_SYST 101
== END 2022-09-27 21:04 ==
LOC: SED 14:53
DX: N39.0 Urinary tract infection, site not specified (principal); R41.82 Altered mental status, unspecified; E11.9 Type 2 diabetes mellitus without complications; I10 Essential (primary) hypertension; Z20.822 Contact with and (suspected) exposure to COVID-19
CPT/HCPCS: 99285; 70450; 71045; 87426; 80307; 80053; 82009; 82140; 82550; 83880; 85025; 85610; 85730; 86140; 87040; 87086; 84484; 36415; 93005; 76376; 96372; 83605; 81000; G0482; J0696; J1885; J2001; J7030; G0480; G0481